=== PATIENT | male | born 1955 | race Caucasian/White ===

== ENCOUNTER 2018-01-30 05:52 | Inpatient (IN) | payer OTHER ==
[2018-01-30] MEDS ORDERED: GABAPENTIN 300 MG CAP PO ONE (06:14)
[2018-01-30] MEDS ORDERED: ceFAZolin 2 GM/SWFI 2 GM/20 ML SYR IVP ONE (06:14)
[2018-01-30] MEDS ORDERED: ACETAMINOPHEN 500 MG TAB PO ONE (06:14)
[2018-01-30] MEDS ORDERED: LR 1,000 ML IV ONE (06:14)
[2018-01-30] MEDS ORDERED: LIDOCAINE 1% 2 ML INJ ID PRN (06:14)
[2018-01-30] MEDS ORDERED: BUPIVACAINE 0.25% 30 ML SDV ONE ×2 (07:15→07:18)
[2018-01-30] MEDS ORDERED: EPINEPHrine 1 MG/ML INJ ONE (07:17)
[2018-01-30] MEDS ORDERED: THROMBIN (BOVINE) 5,000 UNIT VIAL TP ONE (07:17)
[2018-01-30] MEDS ORDERED: CHLORHEXIDINE GLUC HIBICLENS 118 ML BTL TP ONE (07:17)
[2018-01-30] MEDS ORDERED: MIDAZOLAM 2 MG/2 ML VIAL IVP ONE (07:17)
[2018-01-30] MEDS ORDERED: BACITRACIN 50,000 UNITS/10 ML SYR IRR ONE ×2 (07:18→07:19)
[2018-01-30] MEDS ORDERED: MIDAZOLAM 2 MG/2 ML VIAL ONE (07:18)
--- NOTE | 2018-01-30 07:19 | PDANEPAE ---
ANE History of Present Illness Patient presents for L5-S1 TLIF. Endorses sinus congestion. No fever, no runny nose. Lungs CTAB. ANE Past Medical History - Cardiovascular History Hx Hypertension: Yes Hx Arrhythmias: No Hx Chest Pain: No Hx Coronary Artery / Peripheral Vascular Disease: No Hx CHF / Valvular Disease: No Hx Palpitations: No Cardiovascular History Comment: ELEVATEDLIPIDS - Pulmonary History Hx COPD: No Hx Asthma/Reactive Airway Disease: Yes Hx Recent Upper Respiratory Infection: No Hx Oxygen in Use at Home: No Hx Sleep Apnea: Yes Sleep Apnea Screening Result - Last Documented: Negative - Neurologic History Hx Cerebrovascular Accident: No Hx Seizures: No Hx Dementia: No - Endocrine History Hx Diabetes: No Endocrine History Comment: HYPOTHYROID - Renal History Hx Renal Disorders: Yes Renal History Comment: HX OF STONES - Liver History Hx Hepatic Disorders: No - Neurological & Psychiatric Hx Hx Neurological and Psychiatric Disorders: No - Cancer History Hx Cancer: No - Congenital Disorder History Hx Congenital Disorders: No - GI History Hx Gastrointestinal Disorders: No - Other Health History Other Health History: CHRONIC LOW WBC COUNT. LUMBAR STENOSIS. TINNUTIS - Chronic Pain History Chronic Pain: Yes (BUTTOCKS DOWN TO TOES TATYANA WITH N/T SOMETIMES LT LEG) - Surgical History Prior Surgeries: LT THUMB RECONSTRUCTION. LITHOTRIPSY. OPEN REMVL KIDNEY STONE ANE Review of Systems Review of Systems: - Exercise capacity METS (RN): 6 METS ANE Patient History - Allergies Allergies/Adverse Reactions: No Known Allergies Allergy (Unverified 01/26/18 15:16) - Home Medications Home medications: home medication list seen and reviewed Home Medications: Crestor HS 01/26/18 [Last Taken 01/29/18 21:00] Levothyroxine DAILY 01/26/18 [Last Taken 01/30/18 05:00] Melatonin HS 01/26/18 [Last Taken 01/29/18 21:00] - NPO status NPO Status: no food or drink >8 hours NPO Since - Liquids (Date): 01/29/18 NPO Since - Liquids (Time): 22:30 NPO Since - Solids (Date): 01/29/18 NPO Since - Solids (Time): 18:00 - Anes Hx Anes Hx: no prior problems - Smoking Hx Smoking Status: Never smoked ANE Labs/Vital Signs - Vital Signs Blood Pressure: 144/86 Heart Rate: 56 Respiratory Rate: 18 O2 Sat (%): 94 Height: 185.42 cm Weight: 85.275 kg ANE Physical Exam - Airway Neck exam: FROM Mallampati Score: Class 2 Mouth exam: normal dental/mouth exam - Pulmonary Pulmonary: no respiratory distress - Cardiovascular Cardiovascular: regular rate and rhythym - ASA Status ASA Status: II ANE Anesthesia Plan Anesthesia Plan: general endotracheal anesthesia (RBA discussed including increased risks of jasvir-operative airway events. Patient acknowledges risk and desires to proceed. )
[2018-01-30] MEDS ORDERED: DEXAMETHASONE 4 MG/ML VIAL ONE (07:26)
[2018-01-30] MEDS ORDERED: KETOROLAC 30 MG/1 ML SDV ONE (07:26)
[2018-01-30] MEDS ORDERED: ONDANSETRON 4 MG/2 ML VIAL ONE (07:26)
[2018-01-30] MEDS ORDERED: ALBUTEROL HFA ANES ONLY 200 PUFFS/8.5 GM MDI IH ONE ×2 (07:26→07:36)
[2018-01-30] MEDS ORDERED: REMIFENTANIL HCL 1 MG VIAL ONE ×2 (07:27)
[2018-01-30] MEDS ORDERED: PROPOFOL/EMULSION 500 MG/50 ML BOTTLE IV ONE ×2 (07:27→09:35)
[2018-01-30] MEDS ORDERED: PROPOFOL 200 MG/20 ML VIAL ONE (07:27)
[2018-01-30] MEDS ORDERED: fentaNYL 100 MCG/2 ML INJ ONE ×2 (07:28→12:32)
--- NOTE | 2018-01-30 07:30 | PDHPUP ---
History & Physical Update H&P update statement: This history and physical update is based on an assessment of the patient which was completed after admission or registration (within 24 hours), but prior to the surgery/procedure. H&P update: H&P reviewed & patient examined, no change in patient's condition since H&P completed
[2018-01-30] MEDS ORDERED: ROCURONIUM 100 MG/10 ML VIAL ONE (07:35)
[2018-01-30] MEDS ORDERED: ATROPINE SULFATE 1 MG/ML VIAL ONE (08:04)
[2018-01-30] MEDS ORDERED: HYDROmorphONE/DILAUDID 2 MG/ML INJ ONE ×2 (08:30→12:32)
[2018-01-30] MEDS ORDERED: SUGAMMADEX SODIUM 200 MG/2 ML VIAL IVP ONE (11:31)
[2018-01-30] MEDS ORDERED: HYDROCODONE/APAP 5/325 TAB PO PRN (11:39)
[2018-01-30] MEDS ORDERED: oxyCODONE IR 5 MG TAB PO PRN (11:39)
[2018-01-30] MEDS ORDERED: fentaNYL 100 MCG/2 ML INJ IVP PRN (11:39)
[2018-01-30] MEDS ORDERED: LR 500 ML IV PRN (11:39)
[2018-01-30] MEDS ORDERED: HYDROmorphONE/DILAUDID 2 MG/ML INJ IVP PRN (11:39)
[2018-01-30] MEDS ORDERED: ONDANSETRON 4 MG/2 ML VIAL IVP PRN (11:39)
[2018-01-30] MEDS ORDERED: NALOXONE HCL 0.4 MG/ML INJ IVP PRN ×2 (11:39→12:24)
[2018-01-30] MEDS ORDERED: diphenhydrAMINE 25 MG CAP PO PRN (12:12)
[2018-01-30] MEDS ORDERED: MAGNESIUM HYDROXIDE 30 ML UDCUP PO PRN (12:12)
[2018-01-30] MEDS ORDERED: BISACODYL 10 MG SUPP PR PRN (12:12)
[2018-01-30] MEDS ORDERED: morphINE PCA 30 MG/30 ML PCA IV PRN (12:12)
[2018-01-30] MEDS ORDERED: LACTULOSE 20 GM/30 ML UDCUP PO PRN (12:12)
[2018-01-30] MEDS ORDERED: POLYETHYLENE GLYCOL 3350 17 GM PKT PO PRN (12:12)
--- NOTE | 2018-01-30 12:20 | POSTOPPROG ---
Post Op Note Date of Operation: 01/30/18 Surgeon: Eddy [facility] Professor: Regina Mendoza NP Anesthesiologist: Caren Anesthesia: GET(General Endotracheal) Pre-op Diagnosis: Lumbar Stenosis Procedure: L4-5 TLIF Inf/Abcess present in the surg proc area at time of surgery?: No Depth: Deep Incisional (Fascial) EBL: 100-500 Total fluids administered: see anesthesia Complications: none Drains: Homer Diaz Date of Surgery: 01/30/18 Post Op Day: 0 Assessment/Plan: Assessment: 62 yr old s/p L4-5 TLIF Plan: -Admit Med surg -Pain management, PROBATION COUNSELOR ordered if needed -PT/OT eval/treat -Post op xrays in am -Wear brace when out of bed, patient has brace already -Please call neurosurgery with any questions/concerns Subjective: Waking up in PACU Objective: Waking up in PACU No facial droop LEBLANC x4 BLE 5/5 Sensation intact to light touch BLE Dressing CDI JOSE patent Appropriate Neuro Check Frequency Ordered: Yes
--- NOTE | 2018-01-30 12:35 | POSTANESTH ---
Post Anesthetic Evaluation Cardiovascular Status: Similar to Pre-Op Cond Respiratory Status: Similar to Pre-op Cond. Level of Consciousness/Mental Status: Can Participate in Eval Pain Control: Adequate, Prn Tx Ordered Nausea/Vomiting Control: Adequate, Prn Tx Ordered Complications Possibly Related to Anesthesia: None Noted
--- NOTE | 2018-01-30 13:07 | PDMN ---
Medical Necessity Medical necessity: MCG: S820 lumbar fusion- 3 days [facility] INPT only TLIF L4/5
--- NOTE | 2018-01-30 13:43 | ASMTCMCOM ---
CM Note CM Note Notes: Patient is POD 0 L4-5 TLIF. He is doing well on the floor. PT/OT ordered. Patient normally lives with and is independent. His discharge needs are TBD, but if he has any, Case Management will assist. Date Signed: 01/30/2018 01:42 PM Electronically Signed By:Vika De Anda RN
[2018-01-30] MEDS: ceFAZolin 2 GM/DEXTROSE 100 ML IV SCH ×2 (14:15→21:26)
[2018-01-30] MEDS: GABAPENTIN 300 MG CAP PO SCH ×2 (14:17→21:25)
[2018-01-30] MEDS: ACETAMINOPHEN 500 MG TAB PO SCH ×2 (14:17→21:24)
[2018-01-30] MEDS: METHOCARBAMOL 750 MG TAB PO PRN (14:52)
[2018-01-30] MEDS: oxyCODONE IR 5 MG TAB PO PRN (19:30)
[2018-01-30] MEDS ORDERED: ROSUVASTATIN CALCIUM 20 MG TAB PO SCH (21:00)
[2018-01-30] MEDS: SENNOSIDES/DOCUSATE SODIUM TAB PO SCH (21:24)
[2018-01-30] MEDS: FAMOTIDINE 20 MG TAB PO SCH (21:26)
--- NOTE | 2018-01-30 21:40 | GOP ---
[f rep st] OPERATIVE REPORT DATE OF OPERATION: 01/30/2018 SURGEON: Aparna Vasquez MD [facility] ENGINEER: Regina Mendoza NP PREOPERATIVE DIAGNOSIS: 1. Lumbar spondylolisthesis L4-5. 2. Auto fusion L5-S1. 3. Severe bilateral recess stenosis L4-5. 4. Left L4-5 large foraminal disk protrusion. 5. Bilateral lumbosacral radiculopathy. POSTOPERATIVE DIAGNOSIS: 1. Lumbar spondylolisthesis L4-5. 2. Auto fusion L5-S1. 3. Severe bilateral recess stenosis L4-5. 4. Left L4-5 large foraminal disk protrusion. 5. Bilateral lumbosacral radiculopathy. PROCEDURE PERFORMED: Posterior, lateral, and intervertebral arthrodesis with bilateral decompressions at L4-5 with a complete left L4-5 facetectomy and resection and a trans facet decompression of the exiting L4 nerve root with arthrodesis same level (CPT Code 73369), placement of biomechanical intervertebral device L4-5 (CPT Code 43490), nonsegmental instrumentation across a single interspace L4-5 (CPT Code 37063), microscope, same-incision bone graft harvest, spinal stereotaxy for spine surgery. FINDINGS: INDICATIONS: The patient is a 62-year-old who had terrible pain down the right leg, principally in L5 distribution, and numbness in the left leg, for long time. He had bilateral lumbosacral radiculopathy and spondylolisthesis at L4-5 and instability at that level, with a very large left foraminal disk herniation at L L4-5, and bilateral foraminal stenosis with bilateral recess stenosis at that level. I suggested a single-level decompression and fusion. He appeared to be auto-fused at L5-S1 and this could contribute to his spondylolisthesis at L4-5. L3-4 demonstrated mild to moderate spinal stenosis and there were the beginnings of degenerative changes at that level as well, and I felt that in time he may ultimately end up getting surgery at L3-4, and even going higher to L2-3 or higher. This would depend on time, as well as the patient's overall health, but I still suggested a single-level fusion. I discussed with him all these risks, including the risk of pseudoarthrosis, screw and hardware failure, malposition, nerve injury, spinal fluid leak, the possible need for revision surgery, the possible failure of surgery to eliminate his preop symptoms, as well the risk of pseudoarthrosis and revision surgery. He knew there was a risk of infection as well. He wanted to proceed despite the risks. The patient had an upper respiratory syndrome this weekend prior to surgery. It improved somewhat yesterday, but still had some what he felt like was a sinus infection, but no productive cough, no cough whatsoever, and he denied a sore throat. He had a very low-grade fever in both the anesthesiologist and discuss this with him. We did inform him that his perioperative risk was some higher because of this, but because of his overall general good health, the risk was still quite low, but we were certainly willing to defer the case if he wanted to maximize his chance of success while minimizing his chance of any complication. We did not think that the relatively mild symptoms that he was having precluded the possibility of surgery, and it was offered to him, and he had considerable perioperative discomfort and symptoms that he wanted to go ahead and fix. He accepted the risks associated with doing the surgery under those circumstances and he did want to proceed. DESCRIPTION OF PROCEDURE: The patient was taken to the operating room, placed in a supine position. General anesthesia was begun. He was then flipped prone onto the Homer table. Care was taken to pad all points of contact. His somatosensory-evoked potentials were monitored for both the median and ulnar nerve in both upper extremities and these were stable throughout the case. He was sterilely prepped and draped. We made a midline incision that was about 4.5 cm in length above the L4-5 interspace. The subcutaneous tissue was dissected using Bovie cautery down through the fascia and a subperiosteal dissection was made down to the lamina of L4-5. There was laxity of the interspinous and supraspinous ligaments at L4-5, as well as L3-4. There was spondylolisthesis present at L4-5. There is a sesamoid bone coming off the left L2-3 joint, just above the L3 lamina on the left-hand side. We removed this floating piece of bone that was sitting above the L3 lamina. We exposed the L3-4 facet joints and did not violate these joints. We exposed the L4-5 facet joints, which were quite hypertrophic, and we denuded both of these joints to allow access to the pedicle entry site at L5 on both sides. We also decorticated the transverse processes of L4 bilaterally to allow arthrodesis posterior laterally. We marked our pedicle screw entry sites, based upon direct visualization, attached the Stealth reference frame to the L4 spinous process, and performed an O-arm spin. Using frameless stealth stereotaxy we placed pedicle screws bilaterally at L5 and L4. The L5 screws were shorter, 35 mm on the right, and 40 mm on the left. The L4 screws were 45 mm in length, and a final spin was made, confirming all the position of the hardware without breach of the pedicles in any direction. There was no breach of the surrounding disc spaces. They all stimulated to greater than 20 milliamps. We placed placed a 35 mm lulu down between the 2 screws and distracted L4-5 and got reduction of spondylolisthesis at that level. We removed all the soft tissue to the bone from the L4-5 lamina. We then harvested the inferior L4 spinous process for autologous grafting purposes. We then drilled off the rostral arch of L5 to decompress the thecal sac and the lateral recesses. We then decompressed rostrally, following the L5 nerve root on each side. On the left- hand side, the dissection was relatively straightforward. There appeared to be an accessory nerve root on the left, coming out of the thecal sac adjacent to the L5 root, but paralleling the 5 root. It was similar to what one might find with a conjoined nerve root. It was not violated, however, and it was preserved. We worked our way lateral to the thecal sac at L4-5 and completely removed the left L4-5 facet joint. On the right-hand side, working our way along the medial facet, and the neural foramen for the exiting L4 root. As we approached the rostral part of the decompression underneath the arch of L4, there were significant adhesions to the thecal sac coming off the facet joint. We worked our way rostrally around these and then laterally around them, but could not fully separate these adhesions. We then carefully thinned down the bone over these adhesions and then flaked the bone up out of the spinal canal. This bone was attached to the adhesions themselves. This allowed the adhesions to rise up out of the canal, so there was no longer any compression. We now had better visualization, and we decompressed around the rostral portion of these adhesions, and performed a foraminotomy for the exiting L4 root. The right L4-5 foramen was wide open. On the left-hand side, we turned our attention to the disk space, as well as the foramen itself, and there was a far- lateral foraminal disk fragment out beyond the L5 pedicle, and we could palpate this with our ball-tipped probe. We incised the L4-5 disk and then began to deliver large subannular fragments of disk up out of the neural foramen, decompressing the exiting L4 nerve root, and we got a great resection of this far-lateral disk fragment. The L4 nerve root now was completely decompressed in its foramen. We then incised the L4-5 disk more medially and then placed a spinners into the disk, removing much of the disk with the disk spinners, and then used curettes to completely denude the disk and roughened the subchondral bone to create arthrodesis at that level. We inserted the Elevate trial into the L4-5 disk without difficulty, and chose a 7 x 28 mm device. It was then inserted, care taken to protect the exiting L4 root and the traversing L5 root. We inserted it and bone autograft and BMP into the disk space. We used 2 mg of BMP for the entire surgery. One was placed in the disk space and one posterolaterally. Bony autograft had been placed in the disk space as well that we had harvested from the lamina and spinous process of L4. We expanded the elevate cage and took a final x-ray, confirming the position of the device in the interspace at L4-5. All the cap screws were torqued according to company specification. There was a nice lordosis to the lumbar spine. We then irrigated with antibiotic saline solution and placed bone and BMP posterolaterally bilaterally. We then placed a subfascial drain, and then closed the incision in multiple layers using Vicryl sutures. There were no complications. The patient tolerated the procedure well. COMPLICATIONS: None. INSTRUMENTATION USED: I used a Solera 4.75 mm lulu system with a 7 x 28 mm x 10 mm Elevate cage . We used 6.5 mm screws throughout from 35-45 mm. /[id number]/MODL MTDD
[2018-01-31] MEDS: oxyCODONE IR 5 MG TAB PO PRN ×2 (01:48→10:55)
[2018-01-31] MEDS: GABAPENTIN 300 MG CAP PO SCH ×2 (05:51→12:59)
[2018-01-31] MEDS: METHOCARBAMOL 750 MG TAB PO PRN ×2 (05:55→12:04)
[2018-01-31] MEDS ORDERED: LEVOTHYROXINE 88 MCG TAB PO SCH (06:00)
[2018-01-31] MEDS ORDERED: LEVOTHYROXINE 75 MCG TAB PO SCH (06:00)
[2018-01-31] MEDS: ACETAMINOPHEN 500 MG TAB PO SCH ×2 (06:03→12:59)
[2018-01-31 06:30] LABS: PLATELET COUNT 202 10^3/uL (150-400)
[2018-01-31] MEDS: SENNOSIDES/DOCUSATE SODIUM TAB PO SCH (08:26)
[2018-01-31] MEDS: FAMOTIDINE 20 MG TAB PO SCH (08:26)
--- NOTE | 2018-01-31 08:32 | NEUSURGPN ---
Date of Surgery: 01/30/18 Post Op Day: 1 Assessment/Plan: Assessment: 62 yr old s/p L4-5 TLIF POD#1 Plan: -Patient doing well, BLE symptoms improved this am with expected low back pain -Pain currently well controlled with oral medications -PT/OT eval -Post op xrays pending this am -Wear brace when out of bed -Patient may dc home later today if doing well and with therapies recommendations -Please call neurosurgery with any questions/concerns Subjective: Patient doing well, overall pleased with surgical results Objective: AxO x3 No facial droop LEBLANC x4 BLE 5/5 Sensation intact to light touch BLE Dressing CDI JOSE patent Neuro Check Frequency: per routine Urinary Catheter in Place: No Catheter Insertion Date: 01/30/18 - Physician Discussed Patient with : Pedro Patient Seen by : Pedro Neurosurgery Physical Exam - Vitals, I&O, Labs I and O 01/30/18 01/31/18 02/01/18 05:59 05:59 05:59 Intake Total 2750 Output Total 3135 Balance -385 Weight 85.275 kg Intake: Oral (ml) 50 IV Intake (ml) 2700 Output: Urine (ml) 2650 Catheter 2650 Estimated Blood Loss (ml) 200 JOSE Drain Output (ml) 285 #1 Posterior Back Homer 285 Diaz Other: Number of Voids Catheter 1 Vital Signs Temp Pulse Resp BP Pulse Ox 36.8 C 55 L 16 122/72 H 97 01/31/18 08:00 01/31/18 08:00 01/31/18 08:00 01/31/18 08:00 01/31/18 08:00 Laboratory Results 01/31/18 05:30 01/31/18 05:30 ICD10 Worksheet Patient Problems: Problems Problem Status Onset Lumbar stenosis Acute - ICD10 Problem Qualifiers (1) Lumbar stenosis
[2018-01-31 11:40] VITALS: BP 129/70
--- NOTE | 2018-01-31 17:15 | ASMTCMCOM ---
CM Note CM Note Notes: Pt medically stable for d/c with spouse support. PT/OT rec home. No CM d/c needs identified. Date Signed: 01/31/2018 02:07 PM Electronically Signed By:SPENCER Mckay
[2018-01-31] MEDS ORDERED: FAMOTIDINE 20 MG TAB PO PRN (21:00)
[2018-02-01] MEDS ORDERED: LEVOTHYROXINE 75 MCG TAB PO SCH (06:00)
[2018-02-02] MEDS ORDERED: ENOXAPARIN 40 MG/0.4 ML SYR SC SCH (09:00)
== END 2018-01-31 14:31 | disposition home or self-care (01) | DRG 455 ==
LOC: F3N 05:52
PROVIDERS: ADMIT Neurological Surgery; ATTEND Neurological Surgery
PROC: 0SG0071 Fusion of Lumbar Vertebral Joint with Autologous Tissue Substitute, Posterior Approach, Posterior Column, Open Approach (ICD-10-PCS; principal; 2018-01-30 07:30)
PROC: 8E0WXBZ Computer Assisted Procedure of Trunk Region (ICD-10-PCS; principal; 2018-01-30 07:30)
PROC: 0SG00AJ Fusion of Lumbar Vertebral Joint with Interbody Fusion Device, Posterior Approach, Anterior Column, Open Approach (ICD-10-PCS; principal; 2018-01-30 07:30)
PROC: 00NY0ZZ Release Lumbar Spinal Cord, Open Approach (ICD-10-PCS; principal; 2018-01-30 07:30)
PROC: 01NB0ZZ Release Lumbar Nerve, Open Approach (ICD-10-PCS; principal; 2018-01-30 07:30)
DX: M43.16 Spondylolisthesis, lumbar region (principal); M48.061 Spinal stenosis, lumbar region without neurogenic claudication; M54.16 Radiculopathy, lumbar region; M51.26 Other intervertebral disc displacement, lumbar region; I10 Essential (primary) hypertension; E03.9 Hypothyroidism, unspecified; J45.909 Unspecified asthma, uncomplicated
CPT/HCPCS: 97161-GP; 97165-GO; C1713; J0171; J0461; J0690; J1100; J1170; J1885; J2250; J2405; J2704; J3010